=== PATIENT | female | born 1950 | race Caucasian/White ===

== ENCOUNTER 2017-03-06 08:51 | Emergency (ER) | payer BC ==
[~2017-03-06] VITALS: Ht 157.5 cm; Wt 59.0 kg
[~2017-03-06 08:51] MED LIST: ASPIRIN81 MG PO; ATORVASTATIN CA40 MG PO; CLOPIDOGREL75 MG PO; GLIPIZIDE5 MG PO; LISINOPRIL2.5 MG PO; METFORMIN HCL1000 MG PO; METOPROLOL TART25 MG PO; PLAVIX75 MG PO; RINGWORM14.2 GM TOP
--- NOTE | 2017-03-06 14:47 | EKG ---
[facility] [address] [facility] [place], [place] [address] Signed Normal sinus rhythm ST \T\ T wave abnormality, consider lateral ischemia Abnormal ECG When compared with ECG of 21-OCT-2016 05:19, ST\T\T abnormality in Lateral leads , new Confirmed by FATOU BLANC MD ([id number]) on 03/06/2017 2:46:54 PM Electronically Signed By: FATOU BLANC MD 03/06/17 1447 PATIENT NAME: KAYE BEAN Electrocardiogram DATE OF : 52 PHYSICIAN: FATOU BLANC MD REPORT #: [id number] REPORT IS CONFIDENTIAL AND NOT TO BE RELEASED WITHOUT AUTHORIZATION
== END 2017-03-06 10:30 | disposition home or self-care (01) ==
LOC: ED 08:51
DX: E11.65 Type 2 diabetes mellitus with hyperglycemia (principal); I25.2 Old myocardial infarction; Z95.1 Presence of aortocoronary bypass graft; Z90.49 Acquired absence of other specified parts of digestive tract; Z90.710 Acquired absence of both cervix and uterus; Z88.1 Allergy status to other antibiotic agents; Z88.5 Allergy status to narcotic agent; Z79.899 Other long term (current) drug therapy; Z79.82 Long term (current) use of aspirin; Z79.84 Long term (current) use of oral hypoglycemic drugs
CPT/HCPCS: 70450; 71010; 80053; 84484; 85025; 85610; 93005; 93010; 96374; 99284